=== PATIENT | female | born 1945 | race Caucasian/White ===

== ENCOUNTER 2019-06-28 14:24 | Outpatient (CLI) | payer OTHER, MEDICARE, SELFPAY ==
[2019-06-28 12:40] LABS: Blood Urea Nitrogen 9 mg/dL (7-17); Calcium 9.5 mg/dL (8.4-10.2); Carbon Dioxide 30 mmol/L (22-30); Chloride 99 mmol/L (98-107); Cholesterol 129 mg/dL (0-200); Estimated Glomerular Filt Rate > 60; Glucose 105 mg/dL (65-105); HDL Direct 54 mg/dL; Potassium 4.3 mmol/L (3.4-5.0); Sodium 135 mmol/L (137-145); Triglycerides 78 mg/dL (<150)
[2019-06-28 12:51] LABS: LDL Cholesterol Direct 64 mg/dL
[2019-06-29 09:55] LABS: Reference Lab Test Result Negative
[2019-07-01 05:10] LABS: Homocysteine 12.2 umol/L (<10.4)
== END 2019-06-28 14:25 | disposition home or self-care (01) ==
PROVIDERS: PCP Internal Medicine; Visit Provider Internal Medicine
DX: Z20.828 Contact with and (suspected) exposure to other viral communicable diseases (principal); E72.11 Homocystinuria; E78.2 Mixed hyperlipidemia; Z79.899 Other long term (current) drug therapy
CPT/HCPCS: 36415; 80048; 80061; 83090; 84439; 84443; 86769

== ENCOUNTER 2019-11-24 10:42 | Outpatient (CLI) | payer OTHER, MEDICARE, SELFPAY ==
[2019-11-24 11:03] LABS: Basophils Percent Auto 0.5 % (0.2-1.2); Eosinophils Absolute Auto 0.3 K/mm3 (0-0.3); Eosinophils Percent Auto 4.5 % (0-4.4); Hematocrit 41.2 % (37.0-47.0); Immature Granulocyte Absolute 0.01 K/mm3 (0.00-0.031); Immature Granulocyte Percent A 0.2 % (0-0.5); Lymphocytes Absolute Auto 2.11 K/mm3 (0.9-3.2); Lymphocytes Percent Auto 33.9 % (18.3-44.2); Mean Corpuscular Hemoglobin 34.2 pg (26-34); Mean Corpuscular Volume 100.7 fl (80-100); Mean Platelet Volume 10.7 fl (7.4-10.4); Monocytes Absolute Auto 0.5 K/mm3 (0.1-0.6); Monocytes Percent Auto 8.7 % (2.6-8.5); Neutrophils Absolute Auto 3.3 K/mm3 (1.3-6.7); Neutrophils Percent Auto 52.2 % (45.5-73.1); Platelet Count Result 243 k/mm3 (150-375); Red Blood Count 4.09 M/mm3 (4.2-5.4); Red Cell Distribution Width 11.7 % (11.5-14.5); White Blood Count 6.2 K/mm3 (4.5-10.0)
[2019-11-24 11:18] LABS: Anion Gap 8 mmol/L (8-16); Blood Urea Nitrogen 14 mg/dL (7-17); Calcium 9.6 mg/dL (8.4-10.2); Carbon Dioxide 30 mmol/L (22-30); Chloride 103 mmol/L (98-107); Cholesterol 175 mg/dL (0-200); Estimated Glomerular Filt Rate > 60; Glucose 123 mg/dL (65-105); HDL Direct 74 mg/dL; Potassium 4.4 mmol/L (3.4-5.0); Sodium 141 mmol/L (137-145); Triglycerides 124 mg/dL (<150)
[2019-11-24 11:28] LABS: LDL Cholesterol Direct 83 mg/dL
[2019-11-24 11:52] LABS: Free T4 Free Thyroxine 0.79 ng/mL (0.78-2.19)
[2019-11-24 12:26] LABS: Hemoglobin A1C 5.1 % (<5.7)
[2019-11-26 14:42] LABS: Reference Lab Test Result Negative
== END 2019-11-24 10:43 | disposition home or self-care (01) ==
PROVIDERS: PCP Internal Medicine; Visit Provider Internal Medicine
DX: E78.2 Mixed hyperlipidemia (principal); R79.89 Other specified abnormal findings of blood chemistry; R73.09 Other abnormal glucose; E55.9 Vitamin D deficiency, unspecified; Z20.828 Contact with and (suspected) exposure to other viral communicable diseases; Z79.899 Other long term (current) drug therapy
CPT/HCPCS: 36415; 80048; 80061; 83036; 84439; 84443; 85025; 86769

== ENCOUNTER 2019-12-16 06:53 | Outpatient (NON) | payer OTHER, MEDICARE, SELFPAY ==
[2019-12-16 21:43] LABS: SARS-CoV-2 RNA PCR Negative
== END 2019-12-16 06:54 ==
PROVIDERS: PCP Internal Medicine; Visit Provider Internal Medicine
DX: Z20.828 Contact with and (suspected) exposure to other viral communicable diseases (principal)
CPT/HCPCS: 87635; C9803; U0003

== ENCOUNTER 2020-02-03 15:58 | Outpatient (CLI) | payer OTHER, MEDICARE, SELFPAY ==
--- NOTE | ~2020-02-03 | MM_ITS ---
EXAMINATION: MM scrn brody implant BI w mellissa HISTORY: Screening mammogram TECHNIQUE: Craniocaudal and mediolateral oblique 3-D tomosynthesis images with implant displacement a nd synthetic 2-D images were generated. Craniocaudal and mediolateral oblique views of the breasts wi thout implant displacement were obtained using full field digital mammography. CAD analysis was submi tted and interpreted. COMPARISON: Comparison to multiple prior studies sequentially, with oldest reviewed study dated 03/2011. BREAST PARENCHYMAL COMPOSITION: The breasts are heterogeneously dense, which may obscure small masses . FINDINGS: Bilateral subpectoral silicone implants. There is no evidence of suspicious mass, calcifica tion, or architectural distortion to suggest malignancy in either breast. There has been no suspiciou s interval change. IMPRESSION: 1. No mammographic evidence of malignancy. 2. Recommend routine screening mammography in one year. BI-RADS Category 1: Negative Reviewed, dictated and finalized at location A. GRINDER
== END 2020-02-03 15:59 | disposition home or self-care (01) ==
LOC: ANHIMG 16:03
PROVIDERS: PCP Internal Medicine; Visit Provider Obstetrics & Gynecology
DX: Z12.31 Encounter for screening mammogram for malignant neoplasm of breast (principal)
CPT/HCPCS: 77063; 77067

== ENCOUNTER 2020-07-06 07:35 | Outpatient (CLI) | payer OTHER, MEDICARE, SELFPAY ==
--- NOTE | ~2020-07-06 | CT_ITS ---
EXAMINATION: CT lung screening DATE: 07/06/2020 08:12 INDICATION: Z72.0 - Tobacco use TECHNIQUE: Computed tomography (CT) of the chest was performed without intravenous contrast. Addition al 3D reconstructions utilizing coronal maximum intensity projection (MIP) were performed. Automated exposure control and iterative reconstruction technique were employed. The dose-length product was 63 .56 mGy-cm. COMPARISON: 11/05/2018 FINDINGS: No suspicious pulmonary nodules, pneumonia, pulmonary edema or other pulmonary infiltrates. No pleura l effusion. Heart size is normal. Atherosclerotic coronary artery calcific lesion. No pericardial eff usion. Thoracic aorta is normal in caliber. No pathologically enlarged thoracic lymphadenopathy. Bila teral breast implants. Small fat-containing/LAT hernia at the posterior right hemidiaphragm. Cholecys tectomy clips at gallbladder fossa. Mild thoracic spondylosis. IMPRESSION: 1. Lung-RADS category 1: Negative. Continue annual screening with noncontrast low-dose chest CT in 12 months. Reviewed, dictated and finalized at location A. IMPRESSION: 1. Lung-RADS category 1: Negative. Continue annual screening with noncontrast l ow-dose chest CT in 12 months.
[2020-07-06 08:30] LABS: Basophils Percent Auto 0.3 % (0.2-1.2); Eosinophils Absolute Auto 0.3 K/mm3 (0-0.3); Eosinophils Percent Auto 5.3 % (0-4.4); Hematocrit 38.7 % (37.0-47.0); Immature Granulocyte Absolute 0.02 K/mm3 (0.00-0.031); Immature Granulocyte Percent A 0.3 % (0-0.5); Lymphocytes Percent Auto 36.7 % (18.3-44.2); Mean Corpuscular HGB Conc 33.6 g/dl (32-36); Mean Corpuscular Hemoglobin 33.2 pg (26-34); Mean Platelet Volume 10.3 fl (7.4-10.4); Monocytes Absolute Auto 0.5 K/mm3 (0.1-0.6); Monocytes Percent Auto 8.5 % (2.6-8.5); Neutrophils Absolute Auto 3.1 K/mm3 (1.3-6.7); Neutrophils Percent Auto 48.9 % (45.5-73.1); Platelet Count Result 227 k/mm3 (150-375); Red Blood Count 3.91 M/mm3 (4.2-5.4); Red Cell Distribution Width 12.7 % (11.5-14.5); White Blood Count 6.3 K/mm3 (4.5-10.0)
[2020-07-06 08:44] LABS: Alanine Aminotransferase 12 U/L (4-35); Albumin Level 4.2 g/dL (3.5-5.1); Alkaline Phosphatase 44 U/L (38-126); Anion Gap 4 mmol/L (8-16); Aspartate Amino Transferase 30 U/L (14-36); Bilirubin,Total 0.3 mg/dL (0.2-1.3); Blood Urea Nitrogen 9 mg/dL (7-17); Calcium 9.8 mg/dL (8.4-10.2); Carbon Dioxide 32 mmol/L (22-30); Chloride 103 mmol/L (98-107); Cholesterol 129 mg/dL (0-200); Estimated Glomerular Filt Rate > 60; Glucose 90 mg/dL (65-105); HDL Direct 63 mg/dL; Potassium 4.3 mmol/L (3.4-5.0); Sodium 139 mmol/L (137-145); Triglycerides 69 mg/dL (<150)
[2020-07-06 08:45] LABS: Hemoglobin A1C 5.2 % (<5.7)
[2020-07-06 08:55] LABS: LDL Cholesterol Direct 64 mg/dL
[2020-07-06 09:51] LABS: Free T4 Free Thyroxine 0.77 ng/mL (0.78-2.19)
[2020-07-06 09:52] LABS: Folic Acid > 20.0 ng/mL (2.76->20)
[2020-07-11 11:42] LABS: Vitamin D 1,25 (OH)2 Total 38 pg/mL (18-72); Vitamin D2 1,25 (OH)2 <8 pg/mL; Vitamin D3 1,25 (OH)2 38 pg/mL
== END 2020-07-06 07:36 | disposition home or self-care (01) ==
PROVIDERS: PCP Internal Medicine; Visit Provider Internal Medicine
DX: R73.09 Other abnormal glucose (principal); Z12.2 Encounter for screening for malignant neoplasm of respiratory organs; Z87.891 Personal history of nicotine dependence; E78.2 Mixed hyperlipidemia; E72.11 Homocystinuria; E55.9 Vitamin D deficiency, unspecified; Z79.899 Other long term (current) drug therapy
CPT/HCPCS: 36415; 71271; 80053; 80061; 82607; 82652; 82746; 83036; 84439; 84443; 85025

== ENCOUNTER → 2021-02-06 01:12 | Outpatient (CLI) | payer OTHER, MEDICARE, SELFPAY ==
[2021-02-06 13:27] LABS: Influenza Control Positive
[2021-02-07 14:30] LABS: SARS-CoV-2 RNA PCR Negative
== END ==
PROVIDERS: PCP Internal Medicine; Visit Provider Internal Medicine
DX: R68.89 Other general symptoms and signs (principal); Z20.822 Contact with and (suspected) exposure to COVID-19
CPT/HCPCS: 87804; C9803; U0003; U0005

== ENCOUNTER → 2021-02-20 07:51 | Outpatient (CLI) | payer OTHER, MEDICARE, SELFPAY ==
[2021-02-21 13:33] LABS: SARS-CoV-2 RNA PCR Negative
== END ==
PROVIDERS: PCP Internal Medicine; Visit Provider Internal Medicine
DX: Z20.822 Contact with and (suspected) exposure to COVID-19 (principal)
CPT/HCPCS: C9803; U0003; U0005

== ENCOUNTER 2021-07-04 09:37 | Outpatient (CLI) | payer OTHER, MEDICARE, SELFPAY ==
--- NOTE | ~2021-07-04 | MM_ITS ---
EXAMINATION: MM scrn brody implant BI w mellissa HISTORY: Screening mammogram TECHNIQUE: Craniocaudal and mediolateral oblique 3-D tomosynthesis images with implant displacement a nd synthetic 2-D images were generated. Craniocaudal and mediolateral oblique views of the breasts wi thout implant displacement were obtained using full field digital mammography. CAD analysis was submi tted and interpreted. COMPARISON: Comparison to multiple prior studies sequentially, with oldest reviewed study dated 10/16. BREAST PARENCHYMAL COMPOSITION: The breasts are heterogeneously dense, which may obscure small masses . FINDINGS: There are bilateral subpectoral silicone implants. There is no evidence of suspicious mass, calcification, or architectural distortion to suggest malignancy in either breast. There has been no suspicious interval change. IMPRESSION: 1. No mammographic evidence of malignancy. 2. Recommend routine screening mammography in one year. BI-RADS Category 1: Negative Reviewed, dictated and finalized at location A.
== END 2021-07-04 09:38 | disposition home or self-care (01) ==
LOC: ANHIMG 09:40
PROVIDERS: PCP Internal Medicine; Visit Provider Obstetrics & Gynecology
DX: Z12.31 Encounter for screening mammogram for malignant neoplasm of breast (principal)
CPT/HCPCS: 77063; 77067

== ENCOUNTER 2021-12-28 08:34 | Outpatient (CLI) | payer OTHER, MEDICARE, SELFPAY ==
[2021-12-28 09:25] LABS: Basophils Percent Auto 0.5 % (0.2-1.2); Eosinophils Absolute Auto 0.3 K/mm3 (0-0.3); Eosinophils Percent Auto 5.1 % (0-4.4); Hematocrit 41.2 % (37.0-47.0); Hemoglobin 13.5 g/dL (12.0-15.0); Immature Granulocyte Absolute 0.01 K/mm3 (0.00-0.031); Immature Granulocyte Percent A 0.2 % (0-0.5); Lymphocytes Absolute Auto 1.95 K/mm3 (0.9-3.2); Lymphocytes Percent Auto 34.5 % (18.3-44.2); Mean Corpuscular HGB Conc 32.8 g/dl (32-36); Mean Corpuscular Hemoglobin 33.8 pg (26-34); Mean Corpuscular Volume 103.3 fl (80-100); Mean Platelet Volume 10.2 fl (7.4-10.4); Monocytes Absolute Auto 0.5 K/mm3 (0.1-0.6); Monocytes Percent Auto 8.1 % (2.6-8.5); Neutrophils Absolute Auto 2.9 K/mm3 (1.3-6.7); Neutrophils Percent Auto 51.6 % (45.5-73.1); Platelet Count Result 260 k/mm3 (150-375); Red Blood Count 3.99 M/mm3 (4.2-5.4); Red Cell Distribution Width 12.4 % (11.5-14.5); White Blood Count 5.7 K/mm3 (4.5-10.0)
[2021-12-28 09:35] LABS: Alanine Aminotransferase 18 U/L (6-35); Albumin Level 4.6 g/dL (3.5-5.1); Alkaline Phosphatase 50 U/L (38-126); Anion Gap 9 mmol/L (8-16); Aspartate Amino Transferase 32 U/L (14-36); Bilirubin,Total 0.6 mg/dL (0.2-1.3); Blood Urea Nitrogen 7 mg/dL (7-17); Calcium 9.3 mg/dL (8.4-10.2); Carbon Dioxide 27 mmol/L (22-30); Chloride 104 mmol/L (98-107); Cholesterol 159 mg/dL (0-200); Estimated Glomerular Filt Rate > 60; Glucose 89 mg/dL (65-110); HDL Direct 67 mg/dL; Potassium 3.8 mmol/L (3.4-5.0); Sodium 140 mmol/L (137-145); Triglycerides 120 mg/dL (<150)
[2021-12-28 09:46] LABS: LDL Cholesterol Direct 69 mg/dL
[2021-12-28 10:20] LABS: Free T4 Free Thyroxine 0.74 ng/mL (0.78-2.19); Vitamin D 25 Hydroxy 76.6 ng/mL
[2021-12-28 10:44] LABS: Folic Acid > 20.0 ng/mL (2.76->20)
[2021-12-28 11:35] LABS: Hemoglobin A1C 5.4 % (<5.7)
== END 2021-12-28 08:35 | disposition home or self-care (01) ==
PROVIDERS: PCP Internal Medicine; Visit Provider Internal Medicine
DX: R79.89 Other specified abnormal findings of blood chemistry (principal); F41.9 Anxiety disorder, unspecified; E78.5 Hyperlipidemia, unspecified; E53.8 Deficiency of other specified B group vitamins; Z79.899 Other long term (current) drug therapy
CPT/HCPCS: 36415; 80053; 80061; 82306; 82607; 82746; 83036; 84439; 84443; 84481; 85025

== ENCOUNTER 2022-08-28 12:01 | Inpatient (IN) | payer MEDICARE, SELFPAY ==
[2022-08-28] VITALS (27 sets, daily range): BP systolic 139–163; BP diastolic 62–94; PULSE 75–76; RESP 16–20; TEMP 36.3–36.6; O2SAT 92–100; BMI 20.5
--- NOTE | ~2022-08-28 | MR_ITS ---
EXAMINATION: MR brain/brain stem wo con DATE: 08/29/2022 13:59 INDICATION: Syncope. TECHNIQUE: Magnetic resonance imaging (MRI) of the brain and brainstem was performed without intraven ous contrast. COMPARISON: Brain MRI 12/11/2015, head CT 08/28/2022 FINDINGS: There are scattered areas of nonspecific increased T2-weighted signal intensity in the cere bral white matter and dominick. There is a 1.6 cm extra-axial mass medial to right frontal lobe at the fa lx, consistent with a meningioma. The ventricles are normal in size. The paranasal sinuses are clear. There are likely changes of ocular lens replacement surgeries. The mastoid air cells are normal. IMPRESSION: 1. Moderate nonspecific cerebral white matter disease and pontine disease, which likely represents ch ronic small vessel ischemic disease. 2. 1.6 cm right parafalcine meningioma, stable from 12/11/2015. Reviewed, dictated and finalized at location A. IMPRESSION: 1. Moderate nonspecific cerebral white matter disease and pontine disease, whic h likely represents chronic small vessel ischemic disease. 2. 1.6 cm right parafalcine meningioma, stable from 12/11/2015.
--- NOTE | ~2022-08-28 | CT_ITS ---
EXAMINATION: CT brain wo con DATE: 08/28/2022 13:22 INDICATION: Headache TECHNIQUE: Computed tomography (CT) of the head was performed without intravenous contrast. Sagittal and coronal reconstructions were performed. The mA was adjusted according to patient size. Iterative reconstruction technique was employed. The dose-length product was 605.33 mGy-cm. COMPARISON: head CT dated 02/01/2009 and brain MR dated 12/11/2015 FINDINGS: No acute intracranial hemorrhage, acute infarction or abnormal extra axial fluid collection. Chronic 1.6 cm extra-axial mass along the right side of anterior falx most consistent with a meningioma. Ther e is moderate scattered white matter hypoattenuation consistent with chronic small vessel ischemic di sease. Symmetric prominence of the sulci consistent with mild age-appropriate diffuse cerebral volume loss. Ventricles are normal and symmetric. Changes of bilateral intraocular lens replacement. The orbits, paranasal sinuses and mastoid air cells are normal. IMPRESSION: 1. No acute intracranial process. 2. Chronic 1.6 cm extra-axial mass at the medial right frontal region most consistent with a meningio ma. 3. Age-related changes including mild diffuse volume loss and moderate scattered white matter hypoatt enuation consistent with chronic small vessel ischemic disease. Reviewed, dictated and finalized at location B. IMPRESSION: 1. No acute intracranial process. 2. Chronic 1.6 cm extra-axial mass at the medial right frontal region most cons istent with a meningioma. 3. Age-related changes including mild diffuse volume loss and moderate scattere d white matter hypoattenuation consistent with chronic small vessel ischemic di sease.
--- NOTE | 2022-08-28 13:59 | ED.GENADULT ---
HPI - General Adult General Chief complaint: Headache Stated complaint: i need a cat scan headache/neck&back pain Time Seen by Provider: 08/28/22 12:44 History of Present Illness HPI narrative: 76-year-old female presented the emergency department for evaluation of headache. Patient reports on Friday she had been working out and was having some shoulder and posterior neck pain that over the course of the last few days has radiated up and caused some headache. Patient has since had some nausea vomiting and dizziness with this. Patient denies any falls or injuries. Patient denies any fevers. Related Data Home Medications Medication Instructions Recorded Confirmed mecobalamin (vitamin B12) 1,000 1,000 mcg PO DAILY 12/28/18 01/08/22 mcg disintegrating tablet,sublingual multivitamin 1 tablet PO DAILY 12/28/18 01/08/22 bupropion HCl (smoking deter) 150 150 mg PO QNOON 08/03/20 01/08/22 mg tablet,12 hr sustained-release(smoking deterrent) calcium carbonate 500 mg calcium 500 mg PO DAILY 08/03/20 01/08/22 (1,250 mg) tablet (Calcium 500) esterified 1 tablet PO DAILY 08/03/20 01/08/22 estrogens-methyltestosterone 1.25 mg-2.5 mg tablet omeprazole magnesium 20 mg 20 mg PO DAILY 08/03/20 01/08/22 tablet,delayed release (Prilosec OTC) zinc 50 mg capsule 50 mg PO DAILY 08/03/20 01/08/22 Allergies Allergy/AdvReac Type Severity Reaction Status Date / Time aspirin Allergy Unknown Hives Verified 08/28/22 12:44 levofloxacin Allergy Unknown Unknown Verified 08/28/22 12:44 Penicillins Allergy Unknown Hives Verified 08/28/22 12:44 Sulfa (Sulfonamide Allergy Unknown Swelling Verified 08/28/22 12:44 Antibiotics) Review of Systems Review of Systems: All systems reviewed & are unremarkable except as noted in HPI and below PMFSH Past Medical History Medical History Abnormal thyroid blood test Abscess of chin Acute gastritis Blepharitis of eyelid of left eye BMI 20.0-20.9, adult BMI 21.0-21.9, adult Bronchitis Colon cancer screening Elevated glucose Elevated homocysteine Elevation of cardiac enzymes Encounter for preventive health examination Encounter for routine adult health examination without abnormal findings Epigastric pain Exposure to COVID-19 virus Eye infection Follow up Ganglion cyst History of elevated glucose Hives Hyperlipidemia 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 Personal history of nicotine dependence PVC's (premature ventricular contractions) Respiratory illness Sinusitis Swollen upper lip Tobacco abuse Vitamin B12 deficiency Social History Social History Smoking packs per day: 1 Smoking cigarettes per day: 20.0 Years smoked: 40 Smoking pack-years: 40.00 Smoking status: Current every day smoker Tobacco type: cigarettes Alcohol intake: current Drinks per week: 7 Lack of Transportation: No Lack of Food: Never True Current Housing: I Have Housing Concerned About Future Housing: No Difficulty Paying Gas/Electric Bills: No Difficulty Paying for Meds: No Currently Unemployed: No Education: High School Diploma/GED Difficulty w/ Childcare or Family Care: No Living arrangements: alone Gender identity (if verbalized by the patient): Female Spiritual care concerns: No Exam Narrative: APPEARANCE: Well appearing, no pain, no distress, well-nourished. HEAD: normocephalic, atraumatic. EYES: PERRLA/EOMI, conjunctivae clear. NOSE: Normal no drainage EARS:TMS clear with good light reflex. THROAT: Pharynx clear, no exudate. NECK: Supple. No adenopathy, no masses. RESPIRATORY: Airway patent, respirations nonlabored. Clear to auscultation bilaterally, no rales, rhonchi, wheezing. CARDIOVASCULAR: Regular rate and rhythm without murmurs rubs or gallops. ABDOMINAL: Soft, nontender, nondistended, normal bowel sounds MUSCULOSKELETAL: Moves all extrem
[2022-08-28 14:00] LABS: Basophils Percent Auto 0.3 % (0.2-1.2); Eosinophils Percent Auto 0.3 % (0-4.4); Hematocrit 40.6 % (37.0-47.0); Hemoglobin 13.6 g/dL (12.0-15.0); Immature Granulocyte Absolute 0.01 K/mm3 (0.00-0.031); Immature Granulocyte Percent A 0.1 % (0-0.5); Lymphocytes Absolute Auto 0.82 K/mm3 (0.9-3.2); Lymphocytes Percent Auto 11.1 % (18.3-44.2); Mean Corpuscular HGB Conc 33.5 g/dl (32-36); Mean Corpuscular Hemoglobin 34.1 pg (26-34); Mean Corpuscular Volume 101.8 fl (80-100); Mean Platelet Volume 9.9 fl (7.4-10.4); Monocytes Absolute Auto 0.3 K/mm3 (0.1-0.6); Monocytes Percent Auto 3.5 % (2.6-8.5); Neutrophils Absolute Auto 6.3 K/mm3 (1.3-6.7); Neutrophils Percent Auto 84.7 % (45.5-73.1); Platelet Count Result 261 k/mm3 (150-375); Red Blood Count 3.99 M/mm3 (4.2-5.4); Red Cell Distribution Width 12.7 % (11.5-14.5); White Blood Count 7.4 K/mm3 (4.5-10.0)
[2022-08-28] MEDS: ONDANSETRON INJ 4 MG/2 ML VIAL IV PUSH (14:06)
[2022-08-28] MEDS: SODIUM CHLORIDE 0.9% IV 1,000 ML 500 ML IV CONT (14:06)
[2022-08-28] MEDS: MECLIZINE HCL 25 MG TABLET PO (14:06)
[2022-08-28] MEDS: CYCLOBENZAPRINE HCL 10 MG TABLET PO (14:06)
[2022-08-28 14:16] LABS: Alanine Aminotransferase 16 U/L (6-35); Albumin Level 4.5 g/dL (3.5-5.1); Alkaline Phosphatase 44 U/L (38-126); Anion Gap 7 mmol/L (8-16); Aspartate Amino Transferase 29 U/L (14-36); Bilirubin,Total 0.4 mg/dL (0.2-1.3); Blood Urea Nitrogen 11 mg/dL (7-17); Calcium 8.9 mg/dL (8.4-10.2); Carbon Dioxide 26 mmol/L (22-30); Chloride 102 mmol/L (98-107); Estimated Glomerular Filt Rate > 60; Glucose 98 mg/dL (65-110); Potassium 4.2 mmol/L (3.4-5.0); Sodium 135 mmol/L (137-145)
[2022-08-28] MEDS: PROCHLORPERAZINE EDISYLATE 10 MG/2 ML VIAL IV PUSH (16:39)
[2022-08-28] MEDS: diphenhydrAMINE HCl INJ 50 MG/ML VIAL 25 MG IV PUSH (16:40)
[2022-08-28] MEDS: KETOROLAC 15 MG/ML VIAL (*BKC) IV PUSH (16:40)
--- NOTE | 2022-08-28 18:39 | ADMGEN ---
This patient, Shira Lutz, was admitted to Medical Room 251-01. Patient/family oriented to hospital policies and general routines including ID bracelet, bed and alarms, visiting hours, pain management, procedures, bathroom and other care routines, personal items, smoking policy, room service/diet, and visiting hours. Information on how to activate the Rapid Response Team has been discussed. Patient/Family are encouraged to report perceived risks to care and to ask questions if they do not understand what they are told or what they should do.
--- NOTE | 2022-08-28 19:48 | PM.IMHP ---
H&P: HPI History of Present Illness Date/Time: 08/28/22 19:48 Chief Complaint: headache Narrative: This is a 76-year-old lady with a past medical history including but not limited to chronic smoking, dyslipidemia, who presented the emergency department for evaluation of headache.? Patient reports on Friday she had been working out and was having some shoulder and posterior neck pain that over the course of the last few days has radiated up and caused some headache.? Patient has since had some nausea vomiting and dizziness with this.? Patient denies any falls or injuries.? Patient denies any fevers. Head CT reveals chronic 1.6 cm extra-axial mass at the medial right frontal region most consistent with a meningioma. Patient was admitted under observation for pain management. Review of Systems Review of Systems: CONSTITUTIONAL: Negative for any fevers, chills, night sweats, tiredness, fatigue, malaise, anorexia or weight loss. CARDIOVASCULAR: Negative for chest pain, palpitations, dizziness, orthopnea or lower extremity edema. RESPIRATORY: Negative for shortness of breath, cough, wheezing, sputum. GASTROINTESTINAL: Positive for nausea and vomiting; negative for diarrhea, constipation and abdominal pain. GENITOURINARY: Negative for frequency, nocturia, dysuria, hematuria. GYNECOLOGIC: Negative for abnormal bleeding. HEMATOLOGIC: Negative for any abnormal bleeding or bruising. MUSCULOSKELETAL: Negative for joint swelling, stiffness or pain. SKIN: Negative for rashes, eruptions, lesions or dryness. NEUROLOGIC: Positive for headaches. Negative for any focal neurologic complaints. PSYCHIATRIC: Negative for anxiety, panic, depression. [facility] Past Medical History Medical History Abnormal thyroid blood test Abscess of chin Acute gastritis Blepharitis of eyelid of left eye BMI 20.0-20.9, adult BMI 21.0-21.9, adult Bronchitis Colon cancer screening Elevated glucose Elevated homocysteine Elevation of cardiac enzymes Encounter for preventive health examination Encounter for routine adult health examination without abnormal findings Epigastric pain Exposure to COVID-19 virus Eye infection Follow up Ganglion cyst History of elevated glucose Hives Hyperlipidemia On terminologist drug therapy Personal history of nicotine dependence PVC's (premature ventricular contractions) Respiratory illness Sinusitis Swollen upper lip Tobacco abuse Vitamin B12 deficiency Social History Social History Smoking packs per day: 1 Smoking cigarettes per day: 20.0 Years smoked: 40 Smoking pack-years: 40.00 Smoking status: Current every day smoker Alcohol intake: current Drinks per week: 7 Substance use: never Lack of Transportation: No Lack of Food: Never True Current Housing: I Have Housing Concerned About Future Housing: No Difficulty Paying Gas/Electric Bills: No Difficulty Paying for Meds: No Currently Unemployed: No Education: High School Diploma/GED Difficulty w/ Childcare or Family Care: No Living arrangements: alone Gender identity (if verbalized by the patient): Female Spiritual care concerns: No Meds Home Medications and Allergies Home Medications Medication Instructions Recorded Confirmed Type mecobalamin (vitamin B12) 1,000 1,000 mcg PO DAILY PRN daily 12/28/18 08/28/22 History mcg disintegrating tablet,sublingual multivitamin 1 tablet PO DAILY 12/28/18 08/28/22 History esterified 1 tablet PO HS 08/03/20 08/28/22 History estrogens-methyltestosterone 1.25 mg-2.5 mg tablet omeprazole magnesium 20 mg 20 mg PO BID 08/03/20 08/28/22 History tablet,delayed release (Prilosec OTC) rosuvastatin 40 mg tablet See Rx Instructions .Route 03/04/22 08/28/22 Rx .COMPLEX #90 tabs folic acid 1 mg tablet See Rx Instructions .Route 06/13/22 08/28/22 Rx .COMPLEX #90 tabs
[2022-08-28] MEDS: NAPROXEN 500 MG TABLET PO (21:27)
[2022-08-28] MEDS: diphenhydrAMINE HCl CAP 25 MG CAPSULE 50 MG PO (22:52)
[2022-08-28] MEDS: ROSUVASTATIN 10 MG TABLET 20 MG PO (22:53)
[2022-08-28] MEDS: ALPRAZolam (*CRX) 0.25 MG TABLET PO (22:53)
[2022-08-28] MEDS: ACETAMINOPHEN 500 MG TABLET 1000 MG PO (22:53)
[2022-08-28] MEDS: PANTOPRAZOLE 40 MG TABLET PO (22:53)
[2022-08-29] VITALS (15 sets, daily range): BP systolic 99–144; BP diastolic 55–78; PULSE 55–91; RESP 20; TEMP 36.3–36.6; O2SAT 97–100
[2022-08-29] MEDS: SERTRALINE HCL 50 MG TABLET 100 MG PO (08:30)
[2022-08-29] MEDS: PANTOPRAZOLE 40 MG TABLET PO ×2 (08:30→20:32)
--- NOTE | 2022-08-29 09:10 | PM.DS ---
DS: Admitting Diagnosis Discharge Date 08/30/2022 Admitting Diagnosis Headache Meningioma Anxiety and Depression Hyperlipidemia Personal history of nicotine dependence DS: Discharge Diagnosis Discharge Diagnosis (1) Syncope and collapse: Code(s): R55 - Syncope and collapse Status: Acute (2) Postural dizziness with presyncope: Code(s): R42 - Dizziness and giddiness; R55 - Syncope and collapse Status: Acute (3) Headache: Code(s): R51.9 - Headache, unspecified Status: Acute Assessment and Plan: Relieved with NSAIDs, Tylenol, Benadryl and rest. Rx for Naproxen upon discharge. (4) Meningioma: Code(s): D32.9 - Benign neoplasm of meninges, unspecified Status: Acute Assessment and Plan: Chronic and stable frontal meningioma present and grossly unchanged since 2008 with no mass effect findings on CT. This is stable for outpatient follow up with Primary Care for referral to Neurosurgery for routine surveillance. (5) Anxiety and depression: Code(s): F41.9 - Anxiety disorder, unspecified; F32.A - Depression, unspecified Status: Acute Assessment and Plan: Stable, resume home medication. (6) Tobacco abuse: Code(s): Z72.0 - Tobacco use Status: Acute Assessment and Plan: Discussed smoking cessation, Rx for Nicotine patches upon discharge. (7) Hyperlipidemia: Qualifiers: Hyperlipidemia type: mixed hyperlipidemia Qualified Code(s): E78.2 - Mixed hyperlipidemia Code(s): E78.5 - Hyperlipidemia, unspecified Status: Acute Assessment and Plan: Resume home medications upon discharge with routine follow up with Primary Care. (8) Bradycardia with 51-60 beats per minute: Code(s): R00.1 - Bradycardia, unspecified Status: Acute (9) Vertigo: Code(s): R42 - Dizziness and giddiness Status: Acute DS: Summary Hospital Course Reason for hospitalization: This is a 76 year old female patient (appears younger than stated age) who was admitted to hospital due to intractable headache with associated posterior neck, shoulder and spine pain. She was treated with several medications in ER without resolution of symptoms, decision was made to admit primarily for pain control. Hospital Course: 08/29/22: Patient reports she experienced this headache with nausea and was admitted due to inadequate pain relief. Around 2300 on 08/28/22 patient received Tylenol, Naproxen and Benadryl oral. On morning of 08/29 patient reports that pain has completely resolved. She is visiting with family and eating breakfast completely symptom free. She reports she is ready to go home. During ER visit she had head CT completed which showed stable 1.6 cm frontal meningioma. Review of records shows MRI that reports 14 mm meningioma stable since 2008. Patient is aware of this chronic finding. She denies any fever, chills, neck stiffness, dizziness, nausea, vomiting, constipation, diarrhea, chest pain, shortness of breath or orthostatic sensation changes. No papilledema. 08/30/22: Planned to discharge on 08/29/22 but patient had orthostatic dizziness and return of headache. Then after IV fluids patient felt better again, went to use the restroom and upon trying to return to bed she had fall with syncope and collapse. After fall, patient had MRI brain due to headache/syncope/known meningioma as well as EKG which showed sinus bradycardia with PVC and PJC. HR noted to drift as low as 52 on monitor as patient was recovering from syncope. Patient seen by Cardiology with no change in current therapy recommended. Patient also had Neurosurgery consult completed with Dr. Lopez recommending outpatient follow up for meningioma surveillance. Patient received banana bag followed by Normal Saline at 75 mL/hr. This morning patient reports she is all the way back to baseline. She has no pain. She has ambulated around the room without return of symptoms. Patient reques
[2022-08-29] MEDS: SODIUM CHLORIDE 0.9% IV 500 ML IV CONT (10:36)
[2022-08-29] MEDS: KETOROLAC 30 MG/ML VIAL (*BKC) IV PUSH (11:43)
--- NOTE | 2022-08-29 12:18 | ECG_ITS ---
Measurements Intervals [place] Rate: 59 P: 60 UT: 137 QRS: -30 QRSD: 101 T: 66 QT: 394 QTc: 393 Interpretive Statements SINUS BRADYCARDIA ATRIAL AND VENTRICULAR PREMATURE COMPLEXES CANNOT RULE OUT SEPTAL INFARCT, AGE INDETERMINATE BASELINE ARTIFACT- I, II, AVR ABNORMAL ECG NO PREVIOUS ECG AVAILABLE FOR COMPARISON Electronically Signed On 08-29-2022 12:46:42 CDT by Prosper Castillo D.O.
--- NOTE | 2022-08-29 12:20 | PM.IMPN ---
Progress Note: A&P Assessment and Plan (1) Syncope and collapse: Code(s): R55 - Syncope and collapse Status: Acute Assessment and Plan: Acute syncope after finished using restroom and attempting to get back into main hospital room. EKG sinus bradycardia with PVC and PJC noted. (2) Bradycardia with 51-60 beats per minute: Code(s): R00.1 - Bradycardia, unspecified Status: Acute Assessment and Plan: syncope with resultant bradycardia. Ordered EKG as above. Cardiology consult, concerned that bradycardia is causing orthostatic dizziness, syncope and worsening headache. Uncertain how low heart rate may have gone but patient may need pacemaker if she gets significantly bradycardic. Telemetry monitoring ordered as well. (3) Headache: Code(s): R51.9 - Headache, unspecified Status: Acute Assessment and Plan: Headache was gone this morning after NSAIDS/Benadryl/Tylenol last night. However, with orthostatic events headache returned. Will continue conservative symptom management. (4) Meningioma: Code(s): D32.9 - Benign neoplasm of meninges, unspecified Status: Acute Assessment and Plan: Chronic and stable since 2008. Plan NSGY consult for ongoing surveillance. (5) Anxiety and depression: Code(s): F41.9 - Anxiety disorder, unspecified; F32.A - Depression, unspecified Status: Acute Assessment and Plan: stable, controlled on medication. (6) Tobacco abuse: Code(s): Z72.0 - Tobacco use Status: Acute Assessment and Plan: Discussed smoking cessation. Time Spent With Patient Time with patient: Greater than 35 minutes Subjective Date/time seen: 08/29/22 12:20 Interval history: This is a 76 year old female patient (appears younger than stated age) who was admitted to hospital due to intractable headache with associated posterior neck, shoulder and spine pain. She was treated with several medications in ER without resolution of symptoms, decision was made to admit primarily for pain control. Hospital Course: 08/29 at 0730: Patient reports she experienced this headache with nausea and was admitted overnight due to inadequate pain relief. Around 2300 last night patient received Tylenol, Naproxen and Benadryl oral. This morning patient reports that pain has completely resolved. She is visiting with family and eating breakfast completely symptom free. She reports she is ready to go home. During ER visit she had head CT completed which showed stable 1.6 cm frontal meningioma. Review of records shows MRI that reports 14 mm meningioma stable since 2008. Patient is aware of this chronic finding. She denies any fever, chills, neck stiffness, dizziness, nausea, vomiting, constipation, diarrhea, chest pain, shortness of breath or orthostatic sensation changes. No papilledema. 08/29 at 1200: Upon standing up to go to the restroom patient had return of headache and felt lightheaded and like her legs were going to give out. Patient was helped back to bed and her symptoms went away when laying flat. I was called by nursing staff and ordered IV bolus 500 mL Normal Saline after hearing results of orthostatic vital signs obtained. When I arrived to patient room to check on her about an hour later she was again in the restroom. As patient was trying to get back to her bed she was unable to open the bathroom door then she yelled out as she fell backwards. Patient landed against the wall then the floor then hit the back of her head on the wall. I awaited additional help then got patient into wheelchair and back to bed. While vital signs were being obtained I noted pulse monitor steadily dropping to 52. EKG ordered as well as telemetry monitoring. [place] [facility] [place]iology consult also ordered due to concern that patient may have experienced symptomatic severe bradycardia causing her orthostatic dizziness and syncope with fall. MRI also ordered due to headache and
--- NOTE | 2022-08-29 14:56 | PM.CNCAR ---
Assessment and Plan Assessment and plan (1) Postural dizziness with presyncope: Code(s): R42 - Dizziness and giddiness; R55 - Syncope and collapse Status: Acute Assessment and Plan: She had an episode of significant dizziness without syncope or loss of consciousness that occurred when transitioning from a seated to standing position. It looks like orthostatic vital signs were obtained and she did have a drop in her systolic blood pressure from 108 mmHg to 99 mmHg from sitting to standing. Though this drop in systolic blood pressure does not technically qualify as orthostatic hypotension, her dizziness and falling out are likely secondary to mild orthostasis. Her EKG demonstrates sinus bradycardia and her rate is generally in the mid 50s to mid 60s, and her blood pressure is adequate despite very mild bradycardia. She does not have any high-degree AV block and has not demonstrated any pauses or any tachyarrhythmias that would cause as presyncope. Recommend gentle fluid resuscitation, caution with transitioning from lying to sitting, sitting to standing positions. no other further cardiac workup is indicated or recommended at this time. Cardiology will sign off. Please call with questions. History of Present Illness History of Present Illness Consult date/time: 08/29/22 14:56 Requesting physician: Brendon Doan APRN Consult reason: Other (syncope ) Reason For Visit: headache Narrative: Shira Lutz is a 76 year old patient who is admitted to the hospital for headache, neck, and shoulder pain. She was supposed to be discharged home today, but she had a near syncopal episode. We are being asked to see her because of this and bradycardia. Patient states she stood up from the toilet and began to feel dizzy and lightheaded and then she fell out. She denies losing consciousness. Prior to standing up from the seated position she did not have any symptoms. She has not had any episodes like this in the past. She denies any chest pain, shortness of breath. currently, she is lying comfortably in bed does not have any complaints. Review of Systems Review of Systems: All systems reviewed & are unremarkable except as noted in HPI and below PMFSH Past Medical History Medical History Abnormal thyroid blood test Abscess of chin Acute gastritis Blepharitis of eyelid of left eye BMI 20.0-20.9, adult BMI 21.0-21.9, adult Bronchitis Colon cancer screening Elevated glucose Elevated homocysteine Elevation of cardiac enzymes Encounter for preventive health examination Encounter for routine adult health examination without abnormal findings Epigastric pain Exposure to COVID-19 virus Eye infection Follow up Ganglion cyst History of elevated glucose Hives Hyperlipidemia 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 drug therapy Personal history of nicotine dependence PVC's (premature ventricular contractions) Respiratory illness Sinusitis Swollen upper lip Tobacco abuse Vitamin B12 deficiency Social History Social History Smoking packs per day: 1 Smoking cigarettes per day: 20.0 Years smoked: 40 Smoking pack-years: 40.00 Smoking status: Current every day smoker Alcohol intake: current Drinks per week: 7 Substance use: never Lack of Transportation: No Lack of Food: Never True Current Housing: I Have Housing Concerned About Future Housing: No Difficulty Paying Gas/Electric Bills: No Difficulty Paying for Meds: No Currently Unemployed: No Education: High School Diploma/GED Difficulty w/ Childcare or Family Care: No Living arrangements: alone Gender identity (if verbalized by the patient): Female Spiritual care concerns: No Meds Home Medications and Allergies Home Medications Medication Instructions Recorded Confirmed Type mecobalamin (vitamin B12) 1,000 1,000 mcg PO NEGRITA
[2022-08-29] MEDS: NICOTINE (*PBKC) 21 MG PATCH 1 PATCH TRANSDERM (15:16)
[2022-08-29] MEDS: ALPRAZolam (*CRX) 0.25 MG TABLET PO (15:16)
[2022-08-29] MEDS: ASCORBIC ACID 500 MG TABLET PO (15:18)
[2022-08-29] MEDS: CHOLECALCIFEROL 1,000 UNITS TABLET 1000 UNITS PO (15:18)
[2022-08-29] MEDS: THIAMINE HCL 200 MG/2 ML VIAL 100 MG IV PUSH (15:18)
[2022-08-29] MEDS: FOLIC ACID 1 MG TABLET PO (15:19)
--- NOTE | 2022-08-29 15:36 | PHAR ---
HOME MEDS: EST ESTROGEN METHTEST 1.25/2.5 MG TAB; TAKE 1 TABLET BY MOUTH EVERY DAY. [employer] F[employer] CAPSULES KOKOLiquidMS PROBIOTIC; LACTOBACILLUS ACIDOPHILUS [id number] 10B CFU (53 MG)
--- NOTE | 2022-08-29 17:25 | WPDNEUROSGCN ---
Assessment and Plan Assessment and plan (1) Meningioma: Code(s): D32.9 - Benign neoplasm of meninges, unspecified Status: Acute Plan Ms. Lutz is a 76-year-old female with a known history of a meningioma who was admitted for headaches and neck pain. Imaging on admission again demonstrated the meningioma. She is clinically improved since admission. MRI brain shows a 1.6 x 1.3cm right frontal parafalcine meningioma. Radiology reports in the system indicate that the lesion dates back to at least 2008 at which time it had similar dimensions. It seems that this lesion has been very stable over time. We discussed her imaging, the nature of meningiomas, treatment options, and the fact that it is unrelated to her presenting symptoms. I would recommend continued radiographic surveillance with follow up in 1 year with me with MRI brain without/with contrast. I will arrange for follow up. Consult date: 08/29/22 HPI: Shira Lutz is a 76 year old female who was admitted to the hospital with neck and shoulder pain for the last few days associated with nausea/vomiting. Imaging in the ER showed a right frontal parafalcine meningioma for which Neurosurgery was consulted. She states she is feeling much better since being admitted. She has known about the meningioma since 2008 but does not think she has ever seen a neurosurgeon for it. Review of Systems Review of Systems: All systems reviewed & are unremarkable except as noted in HPI and below PMFSH Past Medical History Medical History Abnormal thyroid blood test Abscess of chin Acute gastritis Blepharitis of eyelid of left eye BMI 20.0-20.9, adult BMI 21.0-21.9, adult Bronchitis Colon cancer screening Elevated glucose Elevated homocysteine Elevation of cardiac enzymes Encounter for preventive health examination Encounter for routine adult health examination without abnormal findings Epigastric pain Exposure to COVID-19 virus Eye infection Follow up Ganglion cyst History of elevated glucose Hives Hyperlipidemia 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 Personal history of nicotine dependence PVC's (premature ventricular contractions) Respiratory illness Sinusitis Swollen upper lip Tobacco abuse Vitamin B12 deficiency Social History Social History Smoking packs per day: 1 Smoking cigarettes per day: 20.0 Years smoked: 40 Smoking pack-years: 40.00 Smoking status: Current every day smoker Alcohol intake: current Drinks per week: 7 Substance use: never Lack of Transportation: No Lack of Food: Never True Current Housing: I Have Housing Concerned About Future Housing: No Difficulty Paying Gas/Electric Bills: No Difficulty Paying for Meds: No Currently Unemployed: No Education: High School Diploma/GED Difficulty w/ Childcare or Family Care: No Living arrangements: alone Gender identity (if verbalized by the patient): Female Spiritual care concerns: No Meds Home Medications and Allergies Home Medications Medication Instructions Recorded Confirmed Type mecobalamin (vitamin B12) 1,000 1,000 mcg PO DAILY PRN daily 12/28/18 08/28/22 History mcg disintegrating tablet,sublingual multivitamin 1 tablet PO DAILY 12/28/18 08/28/22 History esterified 1 tablet PO HS 08/03/20 08/28/22 History estrogens-methyltestosterone 1.25 mg-2.5 mg tablet omeprazole magnesium 20 mg 20 mg PO BID 08/03/20 08/28/22 History tablet,delayed release (Prilosec OTC) rosuvastatin 40 mg tablet See Rx Instructions .Route 03/04/22 08/28/22 Rx .COMPLEX #90 tabs folic acid 1 mg tablet See Rx Instructions .Route 06/13/22 08/28/22 Rx .COMPLEX #90 tabs sertraline 100 mg tablet See Rx Instructions .Route 07/12/22 08/28/22 Rx .COMPLEX #90 tabs L.acidop,casei,lactis,rham-B.lact,hank 1 cap PO DAILY 08/28/22 08/28/22 History 625 mg (10 eric
--- NOTE | 2022-08-29 18:22 | PC.NURSE ---
1410- Pt transferred from 2 med- report received from Leilani GRAJEDA- pt arrived ot room 200 via w/c after MRI completed. pt oriented to room and routines of floor. 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 pt denies pain VSS-
[2022-08-29] MEDS: ROSUVASTATIN 10 MG TABLET 20 MG PO (20:32)
[2022-08-29] MEDS: BENZOCAINE/MENTHOL (*BKC) 18 EA LOZENGE 1 LOZENGE PO (22:37)
[2022-08-29] MEDS: diphenhydrAMINE HCl CAP 25 MG CAPSULE 50 MG PO (22:38)
[2022-08-29] MEDS: ACETAMINOPHEN 500 MG TABLET 1000 MG PO (22:38)
[2022-08-29] MEDS: SODIUM CHLORIDE 0.9% IV 1,000 ML 75 ML IV CONT (23:16)
[2022-08-29 23:21] LABS: Glucose Point of Care 101 mg/dl (65-105)
[2022-08-30] VITALS (10 sets, daily range): BP systolic 138–159; BP diastolic 65–75; PULSE 60–70; RESP 20; TEMP 35.6–36.4; O2SAT 97–100
[2022-08-30 05:04] LABS: Glucose Point of Care 89 mg/dl (65-105)
[2022-08-30 07:57] LABS: Hematocrit 37.2 % (37.0-47.0); Hemoglobin 12.3 g/dL (12.0-15.0); Mean Corpuscular HGB Conc 33.1 g/dl (32-36); Mean Corpuscular Volume 102.8 fl (80-100); Mean Platelet Volume 10.1 fl (7.4-10.4); Platelet Count Result 252 k/mm3 (150-375); Red Blood Count 3.62 M/mm3 (4.2-5.4); Red Cell Distribution Width 12.6 % (11.5-14.5); White Blood Count 5.4 K/mm3 (4.5-10.0)
[2022-08-30 08:07] LABS: Anion Gap 2 mmol/L (8-16); Blood Urea Nitrogen 7 mg/dL (7-17); Calcium 8.2 mg/dL (8.4-10.2); Carbon Dioxide 27 mmol/L (22-30); Chloride 108 mmol/L (98-107); Estimated CRCL calculation 60 ml/min; Estimated Glomerular Filt Rate > 60; Glucose 91 mg/dL (65-110); Potassium 4.2 mmol/L (3.4-5.0); Sodium 137 mmol/L (137-145)
[2022-08-30] MEDS: ASCORBIC ACID 500 MG TABLET PO (09:21)
[2022-08-30] MEDS: CHOLECALCIFEROL 1,000 UNITS TABLET 1000 UNITS PO (09:21)
[2022-08-30] MEDS: CYANOCOBALAMIN 1,000 MCG TABLET 1000 MCG PO (09:22)
[2022-08-30] MEDS: FOLIC ACID 1 MG TABLET PO (09:22)
[2022-08-30] MEDS: MULTIVITAMINS THERAPEUTIC TAB (*BKC) 1 TABLET PO (09:23)
[2022-08-30] MEDS: NICOTINE (*PBKC) 21 MG PATCH 1 PATCH TRANSDERM (09:23)
[2022-08-30] MEDS: SERTRALINE HCL 50 MG TABLET 100 MG PO (09:24)
[2022-08-30] MEDS: PANTOPRAZOLE 40 MG TABLET PO (09:24)
[2022-08-30] MEDS: THIAMINE HCL 200 MG/2 ML VIAL 100 MG IV PUSH (09:25)
[2022-08-30] MEDS: BENZOCAINE/MENTHOL (*BKC) 18 EA LOZENGE 1 LOZENGE PO (09:26)
[2022-08-30] MEDS: FLUTICASONE PROPIONATE 0.05% NA SPR 16 GM BTL (*BKC) 2 SPRAY NASAL (09:27)
[2022-08-30] MEDS: KETOROLAC 30 MG/ML VIAL (*BKC) IV PUSH (11:34)
[2022-08-30] MEDS: ALPRAZolam (*CRX) 0.25 MG TABLET PO (11:34)
[2022-08-30 12:02] LABS: Glucose Point of Care 127 mg/dl (65-105)
== END 2022-08-30 15:43 | disposition home or self-care (01) | DRG 312 ==
LOC: ANHED 17:32 → ANH2MED 17:58 → ANHIMU 08-29 14:10
PROVIDERS: Admitting Provider Family Medicine; Emergency Provider Emergency Medicine; PCP Internal Medicine; Visit Provider Nurse Practitioner
DX: I95.1 Orthostatic hypotension (principal); R00.1 Bradycardia, unspecified; R42 Dizziness and giddiness; R51.9 Headache, unspecified; D32.9 Benign neoplasm of meninges, unspecified; E78.5 Hyperlipidemia, unspecified; E53.8 Deficiency of other specified B group vitamins; F17.210 Nicotine dependence, cigarettes, uncomplicated; Z79.899 Other long term (current) drug therapy
CPT/HCPCS: 36415; 70450; 70551; 80048; 80053; 82948; 85025; 85027; 93005; 96361; 96374; 96375; 96376; 99285; A9270; G0378; J0780; J1200; J1885; J2405; J3411; J3475; J7030; J7040

== ENCOUNTER 2022-09-10 11:37 | Outpatient (CLI) | payer MEDICARE, SELFPAY ==
--- NOTE | ~2022-09-10 | XR_ITS ---
XR lumbar spine min 4V DATE: 09/10/2022 12:42 INDICATION: Back pain TECHNIQUE: AP, lateral, coned lateral lumbosacral views. Flexion and extension lateral views. COMPARISON: None FINDINGS: There is approximately 7 mm grade 1 anterolisthesis at L4-5 which is relatively stable in f lexion, extension and neutral. There is very prominent hypertrophic degenerative change at the apophy seal joints at L4-5 and L5-S1. There is moderate degenerative disc disease at L1-2, L3-4 and L4-5. There is moderately severe degenerative disc disease at L2-3. The L5-S1 interspace appears relatively well preserved. No fracture or bone destruction is detected. The lumbar pedicles are intact. The sacroiliac joints are unremarkable. Surgical clips, right upper quadrant, consistent with cholecystectomy. IMPRESSION: Grade 1 anterolisthesis at L4-5 due to degenerative change at the apophyseal joints Multilevel degenerative disc disease Reviewed, dictated and finalized at location L. IMPRESSION: Grade 1 anterolisthesis at L4-5 due to degenerative change at the a pophyseal joints Multilevel degenerative disc disease
--- NOTE | ~2022-09-10 | XR_ITS ---
XR cervical spine 4-5V DATE: 09/10/2022 12:41 INDICATION: Neck pain TECHNIQUE: AP, open-mouth, lateral views. Flexion and extension lateral views. COMPARISON: None FINDINGS: There is reversal of cervical curvature. The C2-3 interspace is well preserved. There is anterior subluxation at C3-4, measuring 1.5 mm in extension, 3.7 mm in neutral and 4 mm in f lexion. There is anterior subluxation at C4-5, measuring 1.5 mm in extension, 2 mm in neutral and 2.8 mm in f lexion. There is anterior spurring at C3-4 and C4-5 but the cervical interspaces at these 2 levels are well p reserved. There is severe degenerative disc disease at C5-6 and C6-7 including prominent loss of interspace hei ght and very prominent anterior spurring. There is posterior spurring at C6-7. There is moderately severe degenerative disc disease at C7-T1. There is an approximately 2.2 mm anterior subluxation at C7-T1 and flexion, reduced in extension. There is degenerative change at the apophyseal joints throughout the cervical spine. Prominent uncove rtebral joint spurring is noted C5-6 and C6-7. C1 and C2 are normally aligned and the odontoid process is intact. No fracture or dislocation or lock ed facet or prevertebral soft tissue swelling is detected. IMPRESSION: Reversal of cervical curvature Anterior subluxation at C3-4, C4-5 and C7-T1 Prominent cervical spondylosis including multilevel degenerative disc disease, severe at C5-6 and C6- 7, moderately severe at C7-T1 in addition to degenerative change at the apophyseal joints and particu larly at the C5-6 and C6-7 uncovertebral joints Reviewed, dictated and finalized at location L. IMPRESSION: Reversal of cervical curvature Anterior subluxation at C3-4, C4-5 and C7-T1 Prominent cervical spondylosis including multilevel degenerative disc disease, severe at C5-6 and C6-7, moderately severe at C7-T1 in addition to degenerative change at the apophyseal joints and particularly at the C5-6 and C6-7 uncovert ebral joints
--- NOTE | ~2022-09-10 | XR_ITS ---
XR thoracic spine 3V DATE: 09/10/2022 12:41 INDICATION: Back pain TECHNIQUE: AP, lateral, swimmer views COMPARISON: None FINDINGS: Normal alignment of the thoracic spine. No fracture or dislocation or bone destruction is e vident. The thoracic pedicles are intact. There is mild to moderate degenerative spurring involving p rimarily the mid and lower thoracic spine. No paraspinal soft tissue thickening. IMPRESSION: Mild to moderate degenerative spurring; no fracture or bone destruction is detected Reviewed, dictated and finalized at location L. IMPRESSION: Mild to moderate degenerative spurring; no fracture or bone destruc tion is detected
== END 2022-09-10 11:38 | disposition home or self-care (01) ==
PROVIDERS: PCP Internal Medicine; Visit Provider Internal Medicine
DX: M51.36 Other intervertebral disc degeneration, lumbar region (principal); M47.816 Spondylosis without myelopathy or radiculopathy, lumbar region; M46.04 Spinal enthesopathy, thoracic region; S13.140A Subluxation of C3/C4 cervical vertebrae, initial encounter; S13.150A Subluxation of C4/C5 cervical vertebrae, initial encounter; S13.180A Subluxation of C7/T1 cervical vertebrae, initial encounter; M47.812 Spondylosis without myelopathy or radiculopathy, cervical region; M50.33 Other cervical disc degeneration, cervicothoracic region; M50.322 Other cervical disc degeneration at C5-C6 level; M50.323 Other cervical disc degeneration at C6-C7 level; X58.XXXA Exposure to other specified factors, initial encounter
CPT/HCPCS: 72050; 72072; 72110

== ENCOUNTER 2022-09-16 10:42 | Outpatient (CLI) | payer MEDICARE, SELFPAY ==
--- NOTE | ~2022-09-16 | CT_ITS ---
EXAMINATION: CT lung screening DATE: 09/16/2022 11:02 INDICATION: Personal history of nicotine dependence TECHNIQUE: Computed tomography (CT) of the chest was performed without intravenous contrast. The dose -length product was 59.72 mGy-cm. Automated exposure control and iterative reconstruction technique w ere employed. COMPARISON: CT dated 07/06/2020 and 11/05/2018 FINDINGS: There are bilateral breast implants. There is atherosclerosis of the aorta and coronary art eries. No significant pleural or pericardial effusion. No thoracic lymphadenopathy. There are cholecy stectomy clips. Otherwise, the upper abdomen is unremarkable. No endobronchial lesions. No focal airs pace disease. No pneumothorax. 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 Stable 2 mm right upper lobe nodules, benign. Mild thoracic spondylosis. IMPRESSION: 1. Lung-RADS category 2: Benign appearance or behavior. Continue annual screening with noncontrast lo w-dose chest CT in 12 months. Reviewed, dictated and finalized at location A. IMPRESSION: 1. Lung-RADS category 2: Benign appearance or behavior. Continue annual screeni ng with noncontrast low-dose chest CT in 12 months.
== END 2022-09-16 10:43 | disposition home or self-care (01) ==
PROVIDERS: PCP Internal Medicine; Visit Provider Internal Medicine
DX: Z12.2 Encounter for screening for malignant neoplasm of respiratory organs (principal); Z87.891 Personal history of nicotine dependence
CPT/HCPCS: 71271

== ENCOUNTER 2022-11-05 08:00 | Outpatient (NON) | payer MEDICARE, SELFPAY | END 2022-11-05 08:01 | disposition home or self-care (01) | LOC: ANHLAB 11-06 12:26 | PROVIDERS: PCP Internal Medicine; Visit Provider Nurse Practitioner | DX: L72.0 Epidermal cyst (principal) | CPT/HCPCS: 88305 ==

== ENCOUNTER 2022-12-19 08:40 | Outpatient (CLI) | payer MEDICARE, SELFPAY ==
--- NOTE | ~2022-12-19 | XR_ITS ---
EXAMINATION: XR chest 2V 12/19/2022 09:53 INDICATION: Cough PROCEDURE: 2 view chest COMPARISON: No prior studies for comparison. FINDINGS: The lungs are clear. There are cholecystectomy clips. The cardiomediastinal silhouette is w ithin normal limits. There are no pleural effusions. There is no pneumothorax suspected. IMPRESSION: 1: NO ACUTE CARDIOPULMONARY DISEASE. Reviewed, dictated and finalized at location L.
== END 2022-12-19 08:41 | disposition home or self-care (01) ==
PROVIDERS: PCP Internal Medicine; Visit Provider Internal Medicine
DX: R05.9 Cough, unspecified (principal)
CPT/HCPCS: 71046

== ENCOUNTER 2023-01-08 00:31 | Day surgery (SDC) | payer MEDICARE, SELFPAY ==
[2022-12-27 11:08] VITALS: BMI 20.8
--- NOTE | 2023-01-06 09:30 | SUR.PREOP ---
Patient called regarding upcoming procedure. Message left on patient's voicemail regarding preop instructions, appointment times, and procedure prep.
--- NOTE | 2023-01-07 16:55 | PM.HPGS ---
History of Present Illness History of Present Illness Consent: Risks, benefits, and alternatives have been discussed and questions answered. Patient agrees to proceed with procedure. Chief complaint: neoplasm screening Narrative: Shira Lutz is a 77 year old female Referred for colon cancer screening. Her last colonoscopy was 10 years ago. She had had polyps prior to that procedure. Review of Systems Review of Systems: All systems reviewed & are unremarkable except as noted in HPI and below PMFSH Past Medical History Medical History Abnormal thyroid blood test Abscess of chin Acute gastritis Back pain Benign essential hypertension Blepharitis of eyelid of left eye BMI 20.0-20.9, adult BMI 21.0-21.9, adult Bronchitis Cervicalgia Colon cancer screening Elevated glucose Elevated homocysteine Elevation of cardiac enzymes Encounter for preventive health examination Encounter for routine adult health examination without abnormal findings Epigastric pain Exposure to COVID-19 virus Eye infection Follow up Ganglion cyst History of elevated glucose Hives Hyperlipidemia LUQ abdominal pain On [facility] drug therapy Personal history of nicotine dependence Postural dizziness with presyncope PVC's (premature ventricular contractions) Respiratory illness Sinusitis Swollen upper lip Syncope and collapse Tobacco abuse Vitamin B12 deficiency Social History Social History Smoking packs per day: 1 Smoking cigarettes per day: 20.0 Years smoked: 40 Smoking pack-years: 40.00 Smoking status: Former smoker Tobacco type: cigarettes Alcohol intake: current Drinks per week: 7 Alcohol use details: 2 glasses wine a day Substance use: never Substance use type: does not use Lack of Transportation: No Lack of Food: Never True Current Housing: I Have Housing Concerned About Future Housing: No Difficulty Paying Gas/Electric Bills: No Difficulty Paying for Meds: No Currently Unemployed: No Education: High School Diploma/GED Difficulty w/ Childcare or Family Care: No Living arrangements: alone Gender identity (if verbalized by the patient): Female Spiritual care concerns: No Meds Home Medications and Allergies Home Medications Medication Instructions Recorded Confirmed Type mecobalamin (vitamin B12) 1,000 1,000 mcg PO DAILY PRN daily 12/28/18 12/27/22 History mcg disintegrating tablet,sublingual multivitamin 1 tablet PO DAILY 12/28/18 12/27/22 History esterified 1 tablet PO HS 08/03/20 12/27/22 History estrogens-methyltestosterone 1.25 mg-2.5 mg tablet omeprazole magnesium 20 mg 20 mg PO BID 08/03/20 12/27/22 History tablet,delayed release (Prilosec OTC) rosuvastatin 40 mg tablet See Rx Instructions .Route 03/04/22 12/27/22 Rx .COMPLEX #90 tabs L.acidop,casei,lactis,rham-B.lact,hank 1 cap PO DAILY 08/28/22 12/27/22 History 625 mg (10 billion cell) capsule (Advanced Probiotic) ascorbic acid (vitamin C) 500 mg 500 mg PO DAILY 08/28/22 12/27/22 History capsule calcium carb-vitamin D3 ER 600 mg 2 tablet PO DAILY 08/28/22 12/27/22 History (1,500 mg)-500 unit tablet,ER 24 hr cholecalciferol (vitamin D3) 25 25 mcg PO DAILY 08/28/22 12/27/22 History mcg (1,000 unit) capsule (Vitamin D3) wgcubbau-jhezpu-jnplxopi acid 3 tab-cap PO DAILY 08/28/22 12/27/22 History diphenhydramine 25 2 tablet PO HS 08/28/22 12/27/22 History mg-acetaminophen 500 mg tablet (Tylenol PM Extra Strength) psyllium husk 0.4 gram capsule 1.2 g PO Q12H 08/28/22 12/27/22 History (Fiber (psyllium husk)) naproxen 500 mg tablet 500 mg PO Q12HR PRN Pain Rated 4-6 08/29/22 12/27/22 Rx #20 tabs nicotine 21 mg/24 hr daily 1 patch transdermal QAM #30 ea 08/29/22 12/27/22 Rx transdermal patch (Nicoderm CQ) meclizine 12.5 mg tablet 12.5 mg PO QID
[2023-01-08 11:07] VITALS: BP 119/70; PULSE 93; RESP 18; TEMP 36.2; O2SAT 100
[2023-01-08] MEDS: LACTATED RINGERS 1,000 ML 150 ML IV CONT (11:10)
--- NOTE | 2023-01-08 11:43 | WPDANESEPPF ---
Anes - Initial Pre Proc Eval Procedure: Operation Date: 01/08/23 12:30 Proposed Procedures p Screening Colonoscopy - Lalo Vogel MD Date/Time: 01/08/23 11:43 Surgeon: Lalo Vogel MD Pre Op Diagnosis: neoplasm screening Patient Data Age: 77 Gender: F Height: 1.63 m Weight: 54.7 kg Last Vital Signs Temp 97.2 F L 01/08/23 11:07 Pulse 93 01/08/23 11:07 Resp 18 01/08/23 11:07 BP 119/70 01/08/23 11:07 Pulse Ox 100 01/08/23 11:07 O2 Del Method Room Air 01/08/23 11:07 Allergies Allergy/AdvReac Type Severity Reaction Status Date / Time aspirin Allergy Unknown Hives Verified 01/08/23 11:06 levofloxacin Allergy Unknown Unknown Verified 01/08/23 11:06 Penicillins Allergy Unknown Hives Verified 01/08/23 11:06 Sulfa (Sulfonamide Allergy Unknown Swelling Verified 01/08/23 11:06 Antibiotics) prochlorperazine AdvReac Hallucinati Verified 01/08/23 11:06 [From Compazine] ng Home Medications Medication Instructions Recorded Confirmed Type mecobalamin (vitamin B12) 1,000 1,000 mcg PO DAILY PRN daily 12/28/18 12/27/22 History mcg disintegrating tablet,sublingual multivitamin 1 tablet PO DAILY 12/28/18 12/27/22 History esterified 1 tablet PO HS 08/03/20 12/27/22 History estrogens-methyltestosterone 1.25 mg-2.5 mg tablet omeprazole magnesium 20 mg 20 mg PO BID 08/03/20 12/27/22 History tablet,delayed release (Prilosec OTC) rosuvastatin 40 mg tablet See Rx Instructions .Route 03/04/22 12/27/22 Rx .COMPLEX #90 tabs L.acidop,casei,lactis,rham-B.lact,hank 1 cap PO DAILY 08/28/22 12/27/22 History 625 mg (10 billion cell) capsule (Advanced Probiotic) ascorbic acid (vitamin C) 500 mg 500 mg PO DAILY 08/28/22 12/27/22 History capsule calcium carb-vitamin D3 ER 600 mg 2 tablet PO DAILY 08/28/22 12/27/22 History (1,500 mg)-500 unit tablet,ER 24 hr cholecalciferol (vitamin D3) 25 25 mcg PO DAILY 08/28/22 12/27/22 History mcg (1,000 unit) capsule (Vitamin D3) plkhfnox-ztqxef-llaefhng acid 3 tab-cap PO DAILY 08/28/22 12/27/22 History diphenhydramine 25 2 tablet PO HS 08/28/22 12/27/22 History mg-acetaminophen 500 mg tablet (Tylenol PM Extra Strength) psyllium husk 0.4 gram capsule 1.2 g PO Q12H 08/28/22 12/27/22 History (Fiber (psyllium husk)) naproxen 500 mg tablet 500 mg PO Q12HR PRN Pain Rated 4-6 08/29/22 12/27/22 Rx #20 tabs nicotine 21 mg/24 hr daily 1 patch transdermal QAM #30 ea 08/29/22 12/27/22 Rx transdermal patch (Nicoderm CQ) meclizine 12.5 mg tablet 12.5 mg PO QID PRN Dizziness 10 08/30/22 12/27/22 Rx days #40 tabs lisinopril 10 1 tablet PO DAILY #90 tabs 09/10/22 12/27/22 Rx mg-hydrochlorothiazide 12.5 mg tablet tizanidine 2 mg capsule 2 mg PO TID PRN muscle spasticity 09/10/22 12/27/22 Rx #30 caps alprazolam 0.25 mg tablet 0.25 mg PO TID PRN Anxiety #90 tabs 11/18/22 12/27/22 Rx folic acid 1 mg tablet See Rx Instructions .Route 12/17/22 12/27/22 Rx .COMPLEX #90 tabs sertraline 100 mg tablet See Rx Instructions .Route 12/17/22 12/27/22 Rx .COMPLEX #90 tabs Patient hx anesthesia problems: none Family hx anesthesia problems: none Results Review: All pre-operative results and documents have been reviewed as part of the pre-operative evaluation. ON LICENSE OF [facility] Past Medical History Medical History (Updated 10/08/22 @ 13:23 by Eloina Nielson [facility]) Abnormal thyroid blood test Abscess of chin Acute gastritis Back pain Benign essential hypertension Blepharitis of eyelid of left eye BMI 20.0-20.9, adult BMI 21.0-21.9, adult Bronchitis Cervicalgia Colon cancer screening Elevated glucose Elevated homocysteine Elevation of cardiac enzymes Encounter for preventive health examination Encounter for routine adult health examination without abnormal findings Epigastric pain Exposure to COVID-19 virus Eye infection Follow up Ganglion cyst History of elevated glucose Hives Hyperlipidemia LUQ
[2023-01-08] MEDS: SIMETHICONE ORAL SUSPENSION 20 MG/0.3 ML 30 ML BOTTLE 0.6 ML IRRIGATION (12:19)
[2023-01-08 12:31] VITALS: BP 114/68; PULSE 73; RESP 19; O2SAT 100
[2023-01-08 12:41] VITALS: BP 110/74; PULSE 67; RESP 22; O2SAT 100
[2023-01-08 12:51] VITALS: BP 106/65; PULSE 73; RESP 24; O2SAT 100
== END 2023-01-08 12:57 | disposition home or self-care (01) ==
PROVIDERS: PCP Internal Medicine; Visit Provider Internal Medicine Gastroenterology
PROC: 0DJD8ZZ Inspection of Lower Intestinal Tract, Via Natural or Artificial Opening Endoscopic (ICD-10-PCS; CPT 45378; principal; 2023-01-08 12:30)
DX: Z12.11 Encounter for screening for malignant neoplasm of colon (principal); Z86.010 Personal history of colon polyps; I10 Essential (primary) hypertension; E78.5 Hyperlipidemia, unspecified; E53.8 Deficiency of other specified B group vitamins; Z87.891 Personal history of nicotine dependence
CPT/HCPCS: G0105; J2704; J7120

== ENCOUNTER 2023-09-22 13:03 | Outpatient (CLI) | payer MEDICARE, SELFPAY ==
--- NOTE | ~2023-09-22 | CT_ITS ---
CT Scan of the Chest without Contrast: Clinical Indication: Lung cancer screening, nicotine dependence Technique: Contiguous sections were acquired throughout the chest without intravenous contrast. Dose reduction technique was used on this scan by utilizing automated exposure control and iterative recon struction technique. The dose-length product (DLP) was 59.72 mGy-cm. COMPARISON: 09/16/2022 Findings: There is no evidence of any significant mediastinal, hilar or axillary lymphadenopathy. There are ext ensive atherosclerotic calcifications of the aorta. There is no evidence of pleural or pericardial effusion. The lungs are clear. No pulmonary nodules or infiltrates are noted. Images through the upper abdomen reveal no abnormalities. Impression: Lung RADS 1: Negative. [address] advised. Reviewed, dictated and finalized at [facility]. Impression: Lung RADS 1: Negative. [address] advised.
== END 2023-09-22 13:04 | disposition home or self-care (01) ==
PROVIDERS: PCP Internal Medicine; Visit Provider Internal Medicine
DX: Z12.2 Encounter for screening for malignant neoplasm of respiratory organs (principal); Z87.891 Personal history of nicotine dependence
CPT/HCPCS: 71271

== ENCOUNTER 2024-01-07 10:24 | Outpatient (CLI) | payer MEDICARE, SELFPAY ==
[2024-01-07 11:23] LABS: Alanine Aminotransferase 21 U/L (6-35); Albumin Level 4.4 g/dL (3.5-5.1); Alkaline Phosphatase 69 U/L (38-126); Anion Gap 6 mmol/L (4-12); Aspartate Amino Transferase 38 U/L (14-36); Bilirubin,Total 0.8 mg/dL (0.2-1.3); Blood Urea Nitrogen 11 mg/dL (7-17); Calcium 9.4 mg/dL (8.4-10.2); Carbon Dioxide 28 mmol/L (22-30); Chloride 102 mmol/L (98-107); Cholesterol 159 mg/dL (0-200); Estimated Glomerular Filt Rate > 60; Glucose 88 mg/dL (65-110); HDL Direct 67 mg/dL; Potassium 4.1 mmol/L (3.4-5.0); Sodium 136 mmol/L (137-145); Triglycerides 107 mg/dL (<150)
[2024-01-07 11:35] LABS: LDL Cholesterol Direct 70 mg/dL
[2024-01-07 18:42] LABS: Hemoglobin A1C 5.2 % (<5.7)
== END 2024-01-07 10:25 | disposition home or self-care (01) ==
LOC: ANHLAB 10:27
PROVIDERS: PCP Internal Medicine; Visit Provider Internal Medicine
DX: E78.2 Mixed hyperlipidemia (principal); I10 Essential (primary) hypertension; R73.02 Impaired glucose tolerance (oral)
CPT/HCPCS: 36415; 80053; 80061; 83036

== ENCOUNTER 2024-10-12 14:32 | Outpatient (CLI) | payer MEDICARE, SELFPAY ==
--- OUTSIDE RECORDS SUMMARY | 2021-07-04 | XMS_ITS | Encounter Summary ---
Author Organization [facility] Healthcare Address [address] [place] [id number] Care Team Providers Care Jai Alai Player Name Role Phone Reinaldo Ramirez MD Primary Care Provider [phone] Reason for Referral * Diagnostic Imaging (Routine) - Pending Review Specialty Diagnoses / Procedures Referred By Contac t Referred To Contact Procedures Breast Imaging Screening Outside Reference Transcribed Order, Provider Referral ID Status Reason Start Date Expiration Date V isits Requested Visits Authorized [id number] Pending Review 10/12/2024 11/11/2025 1 1 Reason for Visit * Diagnostic Imaging (Routine) - Pending Review Specialty Diagnoses / Procedures Referred By Contac t Referred To Contact Procedures Breast Imaging Screening Outside Reference Transcribed Order, Provider Referral ID Status Reason Start Date Expiration Date V isits Requested Visits Authorized [id number] Pending Review 10/12/2024 11/11/2025 1 1 Encounter Details Date Type Department Care Team (Late st Contact Info) Description 07/04/2021 Hospital Encounter [facility] Outside Images [address] [place] [address] Arrived Social History Tobacco Use Types Packs/Day Years Used Date Smoking Tobacco: Never Assessed Personal Safety Answer Date Recorded Getting School Help Needed Not on file 05/09 Comments Unknown Sex and Gender Information Value Date Recorded Sex Assigned at Not on file 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 us Provider Transcribed Order IMG MAMMO PROCEDURES Final Result [facility] documented in this encounter Visit Diagnoses Not on filedocumented in this encounter Care Teams Jai Alai Player Relationship Specialty Start Date End Date Reinaldo Ramirez MD [address] [place] [address] PCP - General Internal Medicine 11/20/18 documented as of this encounter
--- OUTSIDE RECORDS SUMMARY | 2024-10-12 14:59 | XMS_ITS | Clinical Summary ---
Author Organization [facility] [address] [facility] [address] [place] [address] Care Team Providers Care Engine Repairer Production Name Role Phone Reinaldo Ramirez MD Primary Care Provider [phone] Allergies Active Allergy Reactions Criticality Noted Date Comments Penicillins Hives Medium 11/26/2018 Sulfa (Sulfonamide Antibiotics) Unknown 04/2018 Social History Tobacco Use Types Packs/Day Years Used Date Smoking Tobacco: Never Assessed Personal Safety Answer Date Recorded Getting School Help Needed Not on file 05/09 Comments Unknown Sex and Gender Information Value Date Recorded Sex Assigned at Not on file 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 Gender Identity Not on file Sexual Orientation Not on file Plan of Treatment Health Maintenance Due Date Last Done Comments Depression Screening 1945 Fall Risk Assessment 1945 Hepatitis C Screening 1945 Osteoporosis Screening-Bone Density Scan 1945 DTaP/Tdap/Td Vaccine (1 - Tdap) 12/22/1958 Hepatitis B Screening 12/22/1965 Zoster Vaccine (1 of 2) 12/22/1997 Well Visit 65+ 12/22/2012 Influenza Vaccine (#1) 2024 9, 11/07/2017, 11/03/2016, Additional history exists Pneumococcal vaccine 65+ Completed 11/03/2016, 11/24 Insurance MEDICARE [facility] MEDICARE Care Teams Engine Repairer Production Relationship Specialty Start Date End Date Reinaldo Ramirez MD [address] [facility] [address] [place] [address] PCP - General Internal Medicine 11/20/18
--- OUTSIDE RECORDS SUMMARY | 2024-10-12 14:59 | XMS_ITS | Clinical Summary ---
Author Organization [facility] Address [address] [place] [address] Care Team Providers Care Inspector Coated Fabrics Name Role Phone Reinaldo Ramirez MD Primary Care Provider [phone] Source Comments [facility],non-owned Affiliates and Associated Physician Practices is amultiple site organization consisting of ambulatory clinics and hospital sitesin [place], [place], [place] and [place]. This disclosure is being madepursuant to the Care Everywhere program and may not contain all information available regarding this patient. 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 Gender Identity Not on file Sexual Orientation Not on file Plan of Treatment Health Maintenance Due Date Last Done Comments BONE DENSITY TESTING 1945 MEDICARE AWV 12 MONTHS 1945 HEPATITIS C SCREENING 12/18/1965 DTAP/TDAP/TD VACCINES (1 - Tdap) 12/22/1966 PNEUMOCOCCAL VACCINE 50+ (1 of 1 - PCV) 12/22/1997 ZOSTER VACCINE (1 of 2) 12/22/1997 Respiratory Syncytial Virus (RSV) Vaccine Pt: or over 60 yrs (1 - 1-dose 75+ series) 12/22/2022 COVID-19 VACCINE ( - 2023-2 5 season) 2023 DEPRESSION SCREENING 02/25/2024 INFLUENZA VACCINE (#1) 2024 HEPATITIS B VACCINE Aged Out No longe r eligible based on patient's age to complete this topic HIB VACCINE Aged Out No longer eligi ble based on patient's age to complete this topic HPV VACCINE Aged Out No longer eligi ble based on patient's age to complete this topic MENINGOCOCCAL (Group B) VACC INE SHARED DECISION-MAKING Aged Out No longer eligibl e based on patient's age to complete this topic MENINGOCOCCAL GROUPS A/C/Y/W VACCINE Aged Out No longer eligible b ased on patient's age to complete this topic Insurance MEDICARE [facility] MEDICARE Care Teams Inspector Coated Fabrics Relationship Specialty Start Date End Date Reinaldo Ramirez MD [address] [place] [id number] PCP - General 07/24/18
--- NOTE | 2024-10-12 16:25 | WPDPFTINT ---
PFT Procedure Performed PFT Procedure Performed Spirometry with Pre/Post Bronchodilator Plethysmography (Lung Vol) Diffusing Cap (DLCO) Flow Vol Loop PFT Interpretation This is a pulmonary function test with pre and post-bronchodilator spirometry, plethysmography and diffusing capacity. The test was performed and results interpreted in accordance with the 2019 and 2005 ATS/ERS Task Force guidelines respectively using the Global Lung Function Initiative-2012 reference equations. Patient demonstrated good effort and cooperation. Reproducibility criteria were met. The quality of the pre bronchodilator spirometry maneuver was Grade A and post bronchodilator spirometry maneuver was Grade A. Findings: Spirometry: The contour the inspiratory and expiratory flow tracing are normal. The pre bronchodilator FVC is 2.21 L, 80% predicted. The pre bronchodilator FEV1 is 1.51 L, 72% predicted. The pre bronchodilator FEV1: FVC ratio 69%. The post bronchodilator FVC is 2.22 L, representing a 1% increase. The post bronchodilator FEV1 is 1.58 L, representing a 4% increase. The post bronchodilator FEV1: FVC ratio 71%. Plethysmography: The total lung capacity is 5.36 L, 103% predicted. The functional residual capacity is 3.32 L, 111% predicted. The residual volume is 2.71 L, 115% predicted. Diffusing capacity: The diffusing capacity unadjusted for hemoglobin and carboxyhemoglobin is 11.8, 58% predicted. The diffusing capacity adjusted for alveolar volume is 3.39, 82% predicted. Impression: The spirometry is normal without evidence of an obstructive abnormality. There is no significant improvement after inhaling a single dose of albuterol. The lung volumes are normal. The diffusing capacity unadjusted for hemoglobin and carboxyhemoglobin is moderately decreased and normalizes when adjusted for alveolar volume. There are no prior studies for comparison
== END 2024-10-12 14:33 | disposition home or self-care (01) ==
LOC: ANHPFT 14:36
PROVIDERS: PCP Internal Medicine; Visit Provider Internal Medicine
DX: R06.02 Shortness of breath (principal)
CPT/HCPCS: 94060; 94726; 94729

== ENCOUNTER 2025-02-14 16:43 | Outpatient (CLI) | payer MEDICARE, SELFPAY ==
--- NOTE | ~2025-02-14 | US_ITS ---
US abdomen complete EXAMINATION: US Abdomen Complete INDICATION: Abdomen pain PROCEDURE: Realtime High Resolution abdomen ultrasound. COMPARISON: Ultrasound dated 10/21/2018 FINDINGS: Gallbladder is surgically absent. Common bile duct measures 6 mm. Liver echotexture within normal limits without focal mass. Pancreas within normal limits. Pancreatic tail is obscured by bowel gas. Spleen is unremarkeable. Renal echotexture is within normal limits bilaterally without hydronephrosis, contour deforming mass or renal stone. Right kidney measures 9.1 cm. Left kidney measures 8.9 cm. Visualized aspects of the aorta and IVC are within normal limits. Portal vein is patent. No sonographic Peters's sign indicated by the technologist. IMPRESSION: 1: Unremarkable abdominal ultrasound postcholecystectomy. Reviewed, dictated and finalized at location [facility]
--- OUTSIDE RECORDS SUMMARY | 2025-02-14 17:21 | XMS_ITS | Clinical Summary ---
Author Organization [facility] Address [address] [place] [address] Care Team Providers Care General Teller Name Role Phone Reinaldo Ramirez MD Primary Care Provider [phone] Source Comments [facility],non-owned Affiliates and Associated Physician Practices is amultiple site organization consisting of ambulatory clinics and hospital sitesin [place], [place], [place] and [place]. This disclosure is being madepursuant to the Care Everywhere program and may not contain all information available regarding this patient. 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
[2025-02-14 17:55] LABS: Hematocrit 40.7 % (37.0-47.0); Hemoglobin 13.6 g/dL (12.0-15.0); Immature Granulocyte Percent A 0.1 % (0-0.5); Lymphocytes Absolute Auto 1.70 K/mm3 (0.9-3.2); Mean Corpuscular HGB Conc 33.4 g/dl (32-36); Mean Corpuscular Hemoglobin 32.8 pg (26-34); Mean Corpuscular Volume 98.1 fl (80-100); Nucleated Red Blood Cells Absolute Auto 0.000 K/mm3 (0.0-0.012); Nucleated Red Blood Cells Perc 0.0 % (0.0-0.2); Platelet Count Result 235 k/mm3 (150-375); Red Blood Count 4.15 M/mm3 (4.2-5.4); White Blood Count 6.7 K/mm3 (4.5-10.0)
[2025-02-14 18:03] LABS: Alanine Aminotransferase 16 U/L (6-35); Albumin Level 4.5 g/dL (3.5-5.1); Alkaline Phosphatase 49 U/L (38-126); Amylase 70 U/L (30-110); Anion Gap 8 mmol/L (4-12); Aspartate Amino Transferase 32 U/L (14-36); Bilirubin,Total 0.4 mg/dL (0.2-1.3); Blood Urea Nitrogen 13 mg/dL (7-17); Calcium 9.8 mg/dL (8.4-10.2); Carbon Dioxide 26 mmol/L (22-30); Chloride 104 mmol/L (98-107); Estimated Glomerular Filt Rate > 60; Glucose 83 mg/dL (65-110); Lipase 48 U/L (23-300); Potassium 4.1 mmol/L (3.4-5.0); Sodium 138 mmol/L (137-145); Total Protein 7.3 g/dL (6.3-8.2)
== END 2025-02-14 16:44 | disposition home or self-care (01) ==
PROVIDERS: PCP Internal Medicine; Visit Provider Internal Medicine
DX: R10.9 Unspecified abdominal pain (principal)
CPT/HCPCS: 36415; 76700; 80053; 82150; 83690; 85025